=== PATIENT | female | born 1990 | race Hispanic/Latino ===

== ENCOUNTER 2021-11-11 16:46 | Emergency (ER) | payer OTHER ==
--- OUTSIDE RECORDS SUMMARY | 2021-11-11 16:50 | XMS REPORT | Continuity of Care Document ---
:1990 Author Organization [facility] t Address [address] [place] [address] Care Team Providers Name Role Phone No MD, Pcp Primary Care Physician Unavailable JOHANNY CHRISTINE Attending Clinician Unavailable Johanny Christine DO Attending Clinician Samira Barrow RN Attending Clinician Unavailable Doctor Unassigned, [place] Attending Clinician Unavailable Stacia Rogel Attending Clinician STACIA PRINCE Attending Clinician Unavailable Patrick Angel MD Attending Clinician MINGO READ Attending Clinician Unavailable Lab, Adc Fam Pob I Attending Clinician Unavailable Lis Obando Attending Clinician LIS HOGAN Attending Clinician Unavailable STACIA PRINCE Admitting Clinician Unavailable Payers Payer Name Policy Type Policy Number Effective Date Expiration Date S ource AETNA CHOICE POS II [id number] 2020 00:00:00 [employer] COMMERCIAL [id number] 2021 OUT OF NETWORK 00:00:00 Problems Condition Condition Condition Status Onset Resolution Last Treating Co mments Source Name Details Category Date Date Treatment Clinician Date No known No known Disease Unive rs active active ity of problems problems [facility] Allergies, Adverse Reactions, Alerts Allergy Allergy Status Severity Reaction(s) Onset Inactive Treating Comm ents Source Name Type Date Date Clinician Ibuprofe Propensi Active Nausea Univer s n ty to and/or 605 ity of adverse Vomiting 00:00: [place] reaction Medical s Branch IBUPROFE DRUG Active N/V Univers N INGREDI 6-05 ity of 00:00: [place] [facility] Diphenhy Propensi Active Hives Univer s dramine ty to 7-18 ity of Hcl adverse 00:00: [place] reaction Medical s Branch Ibuprin Propensi Active Nausea Univers ty to and/or 718 ity of adverse Vomiting 00:00: [place] reaction Medical s Branch DIPHENHY DRUG Active Hives Univers DRAMINE INGREDI 718 ity of HCL 00:00: [place] [facility] IBUPRIN DRUG Active N/V Univers 7-18 ity of 00:00: [place] [facility] [place] Social History Social Habit Start Date Stop Date Quantity Comments Source Exposure to 2021-08-22 2021-09-01 Not sure [facility] SARS-CoV-2 (event) 00:00:00 00:24:00 [facility] Branch Sex Assigned At [birth year] [facility] 00:00:00 00:00:00 Smoking Status Start Date Stop Date Source Unknown if ever smoked [facility] y [facility] Medications Ordered Filled Start Stop Current Ordering Indication Dosage Frequency Signature Comments Components Source Medication Medication Date Date Medication? Clinician (SIG) Name Name codeine-gua 2021- No 10mL 10 mL, Uni vers ifenesin 09-01 Oral, ity of (ROBITUSSIN 06:45: 05:45 [place] 10-100 00 :00 dose, On Medic al mg/5 mL Fri Branch oral 09/01/21 at solution 10 0145, ELENA mL acetaminoph 2021- Yes 1000mg 1,000 mg, Univers en 09-01 Oral, ity of (TYLENOL) 06:45: 18:44 ONCE, 1 [place] tablet 00 :00 dose, On Medical 1,000 mg Fri Branch 09/01/21 at 0145, ELENA albuterol Yes [id number] 2{puff} Inhale 2 Univers 90 6-24 Puffs ity of mcg/actuati 00:00: every 4 [place] on inhaler 00 (four) Medical hours as Branch needed for Wheezing or Shortness of Breath. albuterol Yes [id number] 2{puff} Inhale 2 Univers 90 6-24 Puffs ity of mcg/actuati 00:00: every 4 [place] as on inhaler 00 (four) Medical hours as Branch needed for Wheezing or Shortness of Breath. albuterol Yes [id number] 2{puff} Inhale 2 Univers 90 6-24 Puffs ity of mcg/actuati 00:00: every 4 [place] on inhaler 00 (four) Medical hours as Branch needed for Wheezing or Shortness of Breath. proMETHazin No 12.5mg 12.5 mg, Univers e 07-21 IV ity of (PHENERGAN) 04:00: 02:51 Piggyback, [place] 12.5 mg in 00 :00 ONCE, 1 Medica l NaCl 0.9% dose, On Branch (NS) 50 mL [place] IV 07/20/21 at piggyback 2300, ELENA azithromyci 2021- No 500mg 500 mg, IV Univers n 07-21 Piggyback, ity of (ZITHROMAX) 01:45: 02:27 [place]CE[place] 500 mg in 00 :00 dose, On Medica l NaCl 0.9% [place] (NS) 250 mL 07/20/21 at VIAL-MATE 2044, IV Administer piggyback over 60 Minutes, 250 mL
R jocelyne for Anti-Infec tive: Documented Infection< br>Documen jhoan Infection Site: Abdominal< br>Duratio n of Therapy: 7 days FENTanyl PF No 50ug 50 mcg, Un bridger (SUBLIMAZE 07-21 Slow IV ity o f (PF)) 01:45: 00:52 Push, [place] injection 00 :00 ONCE, 1 Medical 50 mcg dose, On Branch [place] 07/20/21 at 2044, Routine metoclopram No 10mg 10 mg, Uni vers shavonne HCl 5-13 05-13 Slow IV ity of (REGLAN) 01:45: 00:53 Push, [place] injection 00 :00 ONCE, 1 Medical 10 mg dose, On Branch [place] 07/20/21 at 204, ELENA iopamidol 2021- No [id number] 100mL 100 mL, Univers (ISOVUE 07-21 Intravenou ity o f 370-500 mL) 00:30: 23:10 s, ONCE, 1 [place] injection 00 :00 dose, On Medica l 100 mL [place] Branch 07/20/21 at 1930, Routine dicyclomine 2021- No 20mg 20 mg, Uni vers (BENTYL) 07-21 Intramuscu ity of injection 00:28: 00:28 lar, ONCE, [place] 20 mg 00 :00 1 dose, On Medical [place] 07/20/21 at 1930, Routine NaCl 0.9% 2021- No 1000mL at 999 Uni vers (NS) bolus 07-21 mL/hr, ity of infusion 00:15: 02:09 1,000 mL, [place] as 1,000 mL 00 :00 IV Medical Infusion, Branch ONCE, 1 dose, On [place] 07/20/21 at 1915, ELENA magnesium 2021- No 2g 2 g, IV Univ ers sulfate in 07-21 Piggyback, it y of water 2 00:15: 12:14 Administer [place] as gram/50 mL 00 :00 over 60 Medica l (4 %) Minutes, Branch infusion 2 ONCE, 1 g dose, On [place] 07/20/21 at 1915, Routine NaCl 0.9% 2021- No 1000mL at 999 Uni vers (NS) bolus 07-20 mL/hr, ity of infusion 23:15: 11:14 1,000 mL, [place] 1,000 mL 00 :00 IV Medical Infusion, Branch ONCE, 1 dose, On [place] 07/20/21 at 1815, ELENA ondansetron 2021- No 4mg 4 mg, Slow Univers (ZOFRAN 07-20 IV Push, ity of (PF)) 23:15: 22:32 ONCE, 1 [place] injection 4 00 :00 dose, On Medi vidal mg [place] 07/20/21 at 1815, ELENA pantoprazol 2021- No 40mg 40 mg, Uni vers e 07-20-12 Slow IV ity of (PROTONIX) 23:15: 22:35 Push, [place] injection 00 :00 ONCE, 1 Medical 40 mg dose, On Branch [place] 07/20/21 at 1815 azithromyci 0 Yes [id number] 250mg Take 1 Univers n 250 mg 5-12 tablet by ity of tablet 00:00: mouth [place] 00 daily. Medical Branch proMETHazin Yes [id number] 25mg Take 1 Univers e 25 mg 5-12 tablet by ity of tablet 00:00: mouth [place] 00 every 6 Medical (six) Branch hours as needed for N/V unresponsi ve to Ondansetro n. azithromyci Yes [id number] 250mg Take 1 Univers n 250 mg 5-12 tablet by ity of tablet 00:00: mouth [place] 00 daily. Medical Branch proMETHazin Yes [id number] 25mg Take 1 Univers e 25 mg 5-12 tablet by ity of tablet 00:00: mouth [place] 00 every 6 Medical (six) Branch hours as needed for N/V unresponsi ve to Ondansetro n. azithromyci Yes [id number] 250mg Take 1 Univers n 250 mg 5-12 tablet by ity of tablet 00:00: mouth [place] 00 daily. Medical Branch proMETHazin Yes [id number] 25mg Take 1 Univers e 25 mg 5-12 tablet by ity of tablet 00:00: mouth [place] 00 every 6 Medical (six) Branch hours as needed for N/V unresponsi ve to Ondansetro n. azithromyci Yes [id number] 250mg Take 1 Univers n 250 mg 5-12 tablet by ity of tablet 00:00: mouth [place] 00 daily. Medical Branch proMETHazin Yes [id number] 25mg Take 1 Univers e 25 mg 5-12 tablet by ity of tablet 00:00: mouth [place] 00 every 6 Medical (six) Branch hours as needed for N/V unresponsi ve to Ondansetro n. azithromyci Yes [id number] 250mg Take 1 Univers n 250 mg 5-12 tablet by ity of tablet 00:00: mouth 00 daily. Medical Branch proMETHazin Yes [id number] 25mg Take 1 Univers e 25 mg 5-12 tablet by ity of tablet 00:00: mouth [place] 00 every 6 Medical (six) Branch hours as needed for N/V unresponsi ve to Ondansetro n. dicyclomine Yes 20mg 20 mg, Univ ers (BENTYL) 08-14 Intramuscu ity o f injection 01:00: lar, QID, [place] as 20 mg 00 First dose Medical on Sat Branch 08/14/19 at 1999, Until Discontinu ed, Routine proCHLORper 2019- No 10mg 10 mg, IV Univers azine 08-14 Piggyback, ity of (COMPAZINE) 00:30: 00:30 [place]CE[place] 1 [place] 10 mg in 00 :00 dose, Fri Medica l NaCl 0.9% 08/14/19 at [facility] h (NS) 193, 50 piggyback mL metoclopram 2019- No 10mg 10 mg, Uni vers shavonne HCl 08-14 Slow IV ity of (REGLAN) 00:30: 23:30 Push, [place] injection 00 :00 ONCE, 1 Medical 10 mg dose, Fri [place] 08/14/19 at 1930, ELENA acetaminoph 2019- No 1000mg 1,000 mg, Univers en 08-14 Oral, ity of (TYLENOL) 00:30: 23:25 ONCE, 1 [place] tablet 00 :00 dose, Fri Medical 1,000 mg 08/14/19 at Branch 1929, Routine iohexol 2019-0 2020- No 120mL 120 mL, Unive rs (OMNIPAQUE 08-14 Intravenou it y of 350 00:18: 00:17 s, ONCE, 1 [place] BULK-150 00 :00 dose, Fri Medica l mL) 08/14/19 at [place] injection 1929, 120 mL Routine ondansetron 2020- No 4mg 4 mg, Slow Univers (ZOFRAN 08-14 IV Push, ity of (PF)) 00:15: 23:18 ONCE, 1 [place] injection 4 00 :00 dose, Fri Med ical mg 08/14/19 at Branch 1915, ELENA morpHINE 2019- No 4mg 4 mg, Slow Un bridger injection 4 08-14-05 IV Push, ity of mg 00:15: 23:18 ONCE, 1 [place] 00 :00 dose, Fri Medical 08/14/19 at Branch 1915, STAT NaCl 0.9% 2019- No 1000mL at 999 Uni vers (NS) bolus 08-13-06 mL/hr, ity of infusion 23:15: 01:00 1,000 mL, [place] as 1,000 mL 00 :00 IV Medical Infusion, Branch ONCE, 1 dose, 08/14/19 at 1815, ELENA dicyclomine 2019- No [id number] 20mg Take 1 Univers 20 mg 08-13-13 tablet by ity of tablet 00:00: 04:59 mouth 4 [place] 00 :00 (four) Medical times Branch daily for 7 days. ondansetron 2018-03 Yes [id number] 4mg Take 1 Univers (ZOFRAN 2-28 tablet by ity of ODT) 4 mg 00:00: mouth [place] disintegrat 00 every 8 Medic al ing tablet (eight) Branch hours as needed for Nausea and Vomiting (N/V). promethazin 2018-03 Yes [id number] 5mL Take 5 mL Univers e-codeine 2-28 by mouth 4 ity of 6.25-10 00:00: (four) [place] mg/5 mL 00 times Medical syrup daily as Branch needed for Cough. ondansetron 2018-03 Yes [id number] 4mg Take 1 Univers (ZOFRAN 2-28 tablet by ity of ODT) 4 mg 00:00: mouth [place] disintegrat 00 every 8 Medic al ing tablet (eight) Branch hours as needed for Nausea and Vomiting (N/V). cyclobenzap 2018-03 Yes [id number] 5mg Take 1 Univers rine 5 mg 2-28 tablet by ity o f tablet 00:00: mouth 3 [place] 00 (three) Medical times Branch daily. cyclobenzap 2018-03 Yes [id number] 5mg Take 1 Univers rine 5 mg 2-28 tablet by ity o f tablet 00:00: mouth 3 [place] 00 (three) Medical times Branch daily. promethazin 2018- Yes [id number] 5mL Take 5 mL Univers e-codeine 2-28 by mouth 4 ity of 6.25-10 00:00: (four) [place] mg/5 mL 00 times Medical syrup daily as Branch needed for Cough. ondansetron 2018-03 Yes [id number] 4mg Take 1 Univers (ZOFRAN 2-28 tablet by ity of ODT) 4 mg 00:00: mouth [place] disintegrat 00 every 8 Medic al ing tablet (eight) Branch hours as needed for Nausea and Vomiting (N/V). cyclobenzap 2018-03 Yes [id number] 5mg Take 1 Univers rine 5 mg 2-28 tablet by ity o f tablet 00:00: mouth 3 [place] 00 (three) Medical times Branch daily. promethazin 2018-03 Yes [id number] 5mL Take 5 mL Univers e-codeine 2-28 by mouth 4 ity of 6.25-10 00:00: (four) [place] mg/5 mL 00 times Medical syrup daily as Branch needed for Cough. ondansetron 2018-03 Yes [id number] 4mg Take 1 Univers (ZOFRAN 2-28 tablet by ity of ODT) 4 mg 00:00: mouth [place] disintegrat 00 every 8 Medic al ing tablet (eight) Branch hours as needed for Nausea and Vomiting (N/V). cyclobenzap 2018-03 Yes [id number] 5mg Take 1 Univers rine 5 mg 2-28 tablet by ity o f tablet 00:00: mouth 3 [place] 00 (three) Medical times Branch daily. promethazin 2018-03 Yes [id number] 5mL Take 5 mL Univers e-codeine 2-28 by mouth 4 ity of 6.25-10 00:00: (four) [place] mg/5 mL 00 times Medical syrup daily as Branch needed for Cough. ondansetron 2018- Yes [id number] 4mg Take 1 Univers (ZOFRAN 2-28 tablet by ity of ODT) 4 mg 00:00: mouth [place] disintegrat 00 every 8 Medic al ing tablet (eight) Branch hours as needed for Nausea and Vomiting (N/V). cyclobenzap 2018-03 Yes [id number] 5mg Take 1 Univers rine 5 mg 2-28 tablet by ity o f tablet 00:00: mouth 3 [place] 00 (three) Medical times Branch daily. promethazin 2018-03 Yes [id number] 5mL Take 5 mL Univers e-codeine 2-28 by mouth 4 ity of 6.25-10 00:00: (four) [place] mg/5 mL 00 times Medical syrup daily as Branch needed for Cough. ondansetron 2018-03 Yes [id number] 4mg Take 1 Univers (ZOFRAN 2-28 tablet by ity of ODT) 4 mg 00:00: mouth [place] disintegrat 00 every 8 Medic al ing tablet (eight) Branch hours as needed for Nausea and Vomiting (N/V). cyclobenzap 2018-03 Yes [id number] 5mg Take 1 Univers rine 5 mg 2-28 tablet by ity o f tablet 00:00: mouth 3 [place] 00 (three) Medical times Branch daily. promethazin 2018-03 Yes [id number] 5mL Take 5 mL Univers e-codeine 2-28 by mouth 4 ity of 6.25-10 00:00: (four) [place] mg/5 mL 00 times Medical syrup daily as Branch needed for Cough. ondansetron 2018-03 Yes [id number] 4mg Take 1 Univers (ZOFRAN 2-28 tablet by ity of ODT) 4 mg 00:00: mouth [place] disintegrat 00 every 8 Medic al ing tablet (eight) Branch hours as needed for Nausea and Vomiting (N/V). cyclobenzap 2018-03 Yes [id number] 5mg Take 1 Univers rine 5 mg 2-28 tablet by ity o f tablet 00:00: mouth 3 [place] 00 (three) Medical times Branch daily. promethazin 2018-03 Yes [id number] 5mL Take 5 mL Univers e-codeine 2-28 by mouth 4 ity of 6.25-10 00:00: (four) [place] mg/5 mL 00 times Medical syrup daily as Branch needed for Cough. ondansetron 2018-03 Yes [id number] 4mg Take 1 Univers (ZOFRAN 2-28 tablet by ity of ODT) 4 mg 00:00: mouth [place] disintegrat 00 every 8 Medic al ing tablet (eight) Branch hours as needed for Nausea and Vomiting (N/V). cyclobenzap 2018-03 Yes [id number] 5mg Take 1 Univers rine 5 mg 2-28 tablet by ity o f tablet 00:00: mouth 3 [place] 00 (three) Medical times Branch daily. promethazin 2018-03 Yes [id number] 5mL Take 5 mL Univers e-codeine 2-28 by mouth 4 ity of 6.25-10 00:00: (four) [place] mg/5 mL 00 times Medical syrup daily as Branch needed for Cough. ondansetron 2018-03 Yes [id number] 4mg Take 1 Univers (ZOFRAN 2-28 tablet by ity of ODT) 4 mg 00:00: mouth [place] disintegrat 00 every 8 Medic al ing tablet (eight) Branch hours as needed for Nausea and Vomiting (N/V). cyclobenzap 2018-03 Yes [id number] 5mg Take 1 Univers rine 5 mg 2-28 tablet by ity o f tablet 00:00: mouth 3 [place] 00 (three) Medical times Branch daily. promethazin 2018-03 Yes [id number] 5mL Take 5 mL Univers e-codeine 2-28 by mouth 4 ity of 6.25-10 00:00: (four) [place] mg/5 mL 00 times Medical syrup daily as Branch needed for Cough. traMADOL 2015-0 Yes 50mg Take 1 Tab Uni vers (ULTRAM) 50 7-19 by mouth ity of mg tablet 00:00: every 6 [place] 00 (six) Medical hours as Branch needed for Pain (scale 4-6). traMADOL 2015-0 Yes 50mg Take 1 Tab Uni vers (ULTRAM) 50 7-19 by mouth ity of mg tablet 00:00: every 6 [place] 00 (six) Medical hours as Branch needed for Pain (scale 4-6). traMADOL 2015-0 Yes 50mg Take 1 Tab Uni vers (ULTRAM) 50 7-19 by mouth ity of mg tablet 00:00: every 6 [place] 00 (six) Medical hours as Branch needed for Pain (scale 4-6). traMADOL 2015-0 Yes 50mg Take 1 Tab Uni vers (ULTRAM) 50 7-19 by mouth ity of mg tablet 00:00: every 6 [place] 00 (six) Medical hours as Branch needed for Pain (scale 4-6). traMADOL 2015-0 Yes 50mg Take 1 Tab Uni vers (ULTRAM) 50 7-19 by mouth ity of mg tablet 00:00: every 6 [place] 00 (six) Medical hours as Branch needed for Pain (scale 4-6). traMADOL 2015-0 Yes 50mg Take 1 Tab Uni vers (ULTRAM) 50 7-19 by mouth ity of mg tablet 00:00: every 6 [place] 00 (six) Medical hours as Branch needed for Pain (scale 4-6). traMADOL 2015-0 Yes 50mg Take 1 Tab Uni vers (ULTRAM) 50 7-19 by mouth ity of mg tablet 00:00: every 6 [place] 00 (six) Medical hours as Branch needed for Pain (scale 4-6). traMADOL 2015-0 Yes 50mg Take 1 Tab Uni vers (ULTRAM) 50 7-19 by mouth ity of mg tablet 00:00: every 6 [place] 00 (six) Medical hours as Branch needed for Pain (scale 4-6). traMADOL 2015-0 Yes 50mg Take 1 Tab Uni vers (ULTRAM) 50 7-19 by mouth ity of mg tablet 00:00: every 6 [place] 00 (six) Medical hours as Branch needed for Pain (scale 4-6). ciprofloxac 2015-0 Yes 500mg Take 1 Tab Univers in HCl 7-18 by mouth 2 ity of (CIPRO) 500 00:00: (two) [place] mg tablet 00 times Medical daily. Branch ciprofloxac 2015-0 Yes 500mg Take 1 Tab Univers in HCl 7-18 by mouth 2 ity of (CIPRO) 500 00:00: (two) [place] mg tablet 00 times Medical daily. Branch ciprofloxac 2015-0 Yes 500mg Take 1 Tab Univers in HCl 7-18 by mouth 2 ity of (CIPRO) 500 00:00: (two) [place] mg tablet 00 times Medical daily. Branch ciprofloxac 2015-0 Yes 500mg Take 1 Tab Univers in HCl 7-18 by mouth 2 ity of (CIPRO) 500 00:00: (two) [place] mg tablet 00 times Medical daily. Branch ciprofloxac 2015-0 Yes 500mg Take 1 Tab Univers in HCl 7-18 by mouth 2 ity of (CIPRO) 500 00:00: (two) [place] mg tablet 00 times Medical daily. Branch ciprofloxac 2015-0 Yes 500mg Take 1 Tab Univers in HCl 7-18 by mouth 2 ity of (CIPRO) 500 00:00: (two) [place] mg tablet 00 times Medical daily. Branch ciprofloxac 2015-0 Yes 500mg Take 1 Tab Univers in HCl 7-18 by mouth 2 ity of (CIPRO) 500 00:00: (two) [place] mg tablet 00 times Medical daily. Branch ciprofloxac 2015-0 Yes 500mg Take 1 Tab Univers in HCl 7-18 by mouth 2 ity of (CIPRO) 500 00:00: (two) [place] mg tablet 00 times Medical daily. Branch ciprofloxac 2014-0 Yes 500mg Take 1 Tab Univers in HCl 7-18 by mouth 2 ity of (CIPRO) 500 00:00: (two) [place] mg tablet 00 times Medical daily. Branch Vital Signs Vital Name Observation Time Observation Value Comments Source Systolic blood 2021-09-01 05:24:00 130 mm[Hg] Univer [facility]ity of [facility] Diastolic blood 2021-09-01 05:24:00 69 mm[Hg] [facility] Heart rate 2021-09-01 05:24:00 124 /min [facility] Body temperature 2021-09-01 05:24:00 39.22 [facility] Respiratory rate 2021-09-01 05:24:00 18 /min [facility] Body height 2021-09-01 05:24:00 167.6 cm [facility] Body weight 2021-09-01 05:24:00 77.111 kg [facility] BMI 2021-09-01 05:24:00 27.44 kg/m2 [facility] Oxygen saturation in 2021-09-01 05:24:00 98 /min [facility] Arterial blood by [facility] Pulse oximetry Branch Systolic blood 2021-07-21 03:00:00 113 mm[Hg] Univer sity [facility] Diastolic blood 2021-07-21 03:00:00 66 mm[Hg] Unive rsity [facility] Heart rate 2021-07-21 03:00:00 105 /min [facility] Respiratory rate 2021-07-21 03:00:00 18 /min [facility] Oxygen saturation in 2021-07-21 03:00:00 99 /min [facility] Arterial blood by [facility] Pulse oximetry Branch Body temperature 2021-07-20 21:47:00 37.22 [facility] Body height 2021-07-20 21:47:00 167.6 cm Universi [facility] Body weight 2021-07-20 21:47:00 62.143 kg [facility] BMI 2021-07-20 21:47:00 22.11 kg/m2 [facility] Systolic blood 2019-08-15 01:05:11 104 mm[Hg] [facility] pressure [facility] Diastolic blood 2019-08-15 01:05:11 67 mm[Hg] [facility] [place] [facility] Heart rate 2019-08-15 01:05:11 77 /min [facility] Body temperature 2019-08-15 01:05:11 36.28 [facility] Respiratory rate 2019-08-15 01:05:11 16 /min [facility] Oxygen saturation in 2019-08-15 01:05:11 100 /min [facility] Arterial blood by [facility] Pulse oximetry Branch Body weight 2019-08-14 22:36:00 62.143 kg [facility] BMI 2019-08-14 22:36:00 22.11 kg/m2 [facility] Procedures Procedure Date / Time Performing Clinician Source Performed EMERGENCY SERVICES 2021-09-01 05:01:00 [facility] AGREEMENTS AND [place] [facility] AUTHORIZATIONS NOTICE OF PRIVACY 2021-09-01 04:50:35 Doctor Von, [facility] PRACTICES [facility] [place] CONSENT/REFUSAL FOR 2021-09-01 04:50:07 Doctor Von, [facility] DIAGNOSIS AND TREATMENT [place] [facility] [place] CT ABDOMEN PELVIS W 2021-07-20 23:22:26 Stacia Prince [facility] CONTRAST [facility] Branch LIPASE 2021-07-20 22:30:00 Stacia Prince [facility] MAGNESIUM 2021-07-20 22:30:00 Stacia Prince [facility] COMP. METABOLIC PANEL 2021-07-20 22:30:00 Stacia [facility] [place] [id number] Medical Branch CBC WITH DIFF 2021-07-20 22:30:00 Stacia Prince [facility] URINALYSIS 2021-07-20 22:30:00 Stacia Prince [facility] POCT TEST 2021-07-20 22:30:00 Stacia Prince [facility] CT ABDOMEN PELVIS W 2019-08-15 00:25:09 Stacia Prince [facility] XR CHEST 1 VW 2019-08-14 23:29:44 Stcaia Prince [facility] POCT TEST 2019-08-14 23:09:00 Stacia Prince [facility] LIPASE 2019-08-14 23:07:00 Stacia Prince [facility] TROPONIN I 2019-08-14 23:07:00 Stacia Prince [facility] COMP. METABOLIC PANEL 2019-08-14 23:07:00 [facility] [place] [id number] CBC WITH DIFFERENTIAL 2019-08-14 23:07:00 [facility] 2019-08-14 23:07:00 Stacia Prince [facility] NOTICE OF PRIVACY 2019-08-14 22:31:04 Doctor Unassigned, [facility] PRACTICES [place] [facility] [place] CONSENT/REFUSAL FOR 2019-08-14 22:15:31 Doctor Unassigned, [facility] DIAGNOSIS AND TREATMENT [place] [facility] [place] Encounters Start End Encounter Admission Attending Care Care Encounter Source Date/Time Date/Time Type Type Clinicians Facility Department ID 2021-02-28 Outpatient [facility] [id number] [place] 14:58:23 Health 2021-09-01 2021-09-01 Emergency X NANCI NMJAMIR ERT [id number] Univers 00:33:00 00:49:00 JOHANNY ity of [facility] 2021-09-01 2021-09-01 [facility] [id number] Univers 00:33:00 00:49:00 Johanny JEFFERY [id number] [id number] [id number] [place] [id number] 2021-09-01 2021-09-01 Letter ANGELES [place] [id number] Univers 00:00:00 00:00:00 (Out) Samira JOHN [id number] it y of HOSPITAL [id number] [place] as [phone] [facility] 019 [place] 2021-09-01 2021-09-01 Orders Doctor REYNOSO [id number] Univers 00:00:00 00:00:00 Only Unassigned, DORA [id number] ity of [place] HOSPITAL [id number] [place] as [id number] [facility] 009 [place] 2021-08-31 2021-08-31 Orders Doctor REYNOSO [id number] Univers 00:00:00 00:00:00 Only Unassigned, DORA [id number] ity of [place] HOSPITAL [id number] [place] as [id number] [address] 2021-07-20 2021-07-20 [facility] [id number] Univers 16:49:00 23:53:00 Stacia JEFFERY [id number] ity of [place] [id number] [facility] [id number] [address] 2021-07-20 2021-07-20 Emergency X [facility] ERT [id number] Univers 16:49:00 23:53:00 FOLUSHO ity of [facility] 2021-02-28 2021-02-28 Office TRAE Angel [facility] [id number] [facility] 14:30:00 15:54:48 Visit Patrick ELDRIDGE [id number] H yaniv SHIN [id number] [facility] [id number] 2020-07-25 2020-07-26 Emergency E MINGO READ [facility] [id number] [facility] 22:30:00 01:39:00 2020-04-01 2020-04-01 Outpatient R [facility] [id number] Univers 09:40:00 09:40:00 [id number] ity [facility] 2020-04-01 2020-04-01 Outpatient R [facility] [id number] Univers 09:40:00 09:40:00 ity [facility] 2019-10-27 2019-10-27 Laboratory Lab, Adc Fam Pob I [facility] 1.2. [id number] Univers 13:12:09 13:32:09 Only Lis [place] [facility] [id number] ity of [place] 4.2.7.2.686 Waqas as Mandeep [phone] [address] Office Building One 2019-10-27 2019-10-27 Outpatient R [facility] [id number] Univers 13:20:00 13:20:00 [id number] ity [facility] 2019-10-27 2019-10-27 [facility] [id number] Univers 13:20:00 13:20:00 LIS ity [facility] 2019-10-27 2019-10-27 [facility] [id number] Univers 11:40:00 11:40:00 LIS y [facility] 2019-10-27 2019-10-27 Letter Doctor ANGELES [id number] Univers 00:00:00 00:00:00 (Out) Unassigned, DORA 350.1.13.10 [facility] 4.2.7.2.686 Waqas as [phone] [address] 2019-08-14 2019-08-14 Emergency Shahla [facility] [id number] Univers 17:31:29 20:11:00 Stacia Jeffery 350.1.13.10 ity of [place] 4.2.7.2.686 [facility] [phone] [facility] [address] 2019-08-14 2019-08-14 Emergency X SHAHLA, [facility] ERT [id number] Univers 17:31:29 20:11:00 FOLUSHO ity of [facility] 2019-08-14 2019-08-14 Orders Doctor ANGELES [id number] Univers 00:00:00 00:00:00 Only Unassigned, DORA 350.1.13.10 ity of [place] [facility] 4.2.7.2.686 [facility] [phone] [facility] [address] Results Test Description Test Time Test Comments Results Result Comments Source CBC WITH DIFF 2021-07-20 23:35:34 Test Item Value Reference Range Interpretation Comme nts WBC (test code = 6690-2) See_Comment H [A utomated message] The system which ge nerated this result transmit jhoan reference range: 4.30 - 1 1.10 10*3/?L. The reference r agustin was not used to interpr et this result as normal/abnor mal. RBC (test code = 789-8) See_Comment [Au tomated message] The system which ge nerated this result transmit jhoan reference range: 3.93 - 5 .25 10*6/?L. The reference r agustin was not used to interpr et this result as normal/abnor mal. HGB (test code = 718-7) 13.1 g/dL 11.6-15.0 HCT (test code = 4544-3) 39.9 % 35.7-45.2 MCV (test code = 787-2) 88.9 fL 80.6-95.5 MCH (test code = 785-6) 29.2 pg 25.9-32.8 MCHC (test code = 786-4) 32.8 g/dL 31.6-35.1 RDW-SD (test code = 15735-5) 45.5 fL 39.0-49.9 RDW-CV (test code = 788-0) 14.0 % 12.0-15.5 PLT (test code = 777-3) See_Comment [Au tomated message] The system which ge nerated this result transmit jhoan reference range: 166 - 35 8 10*3/?L. The reference range was not used to interpret th is result as normal/abnormal . MPV (test code = 83750-8) 10.7 fL 9.5-12.9 NRBC/100 WBC (test code = See_Comment [ Automated message] The 1917161577) system which ge nerated this result transmit jhoan reference range: 0.0 - 10 .0 /100 WBCs. The reference r agustin was not used to interpr et this result as normal/abnor mal. NRBC x10^3 (test code = <0.01 See_Comment [Au tomated message] The 8386892891) system which ge nerated this result transmit jhoan reference range: 10*3/?L. The reference range was not u sed to interpret this result as normal/abnormal . SEG % (test code = 29958-5) 84 % 33-76 H BAND % (test code = 07794-3) 4 % 0-1 H LYMPH % (test code = 6 % 14-54 L 21988-2) MONO % (test code = 25897-0) 6 % 0-4 H ANC (test code = 753-4) 15.79 10*3/uL 1.88-7.09 H Lab Interpretation (test Abnormal code = 41542-5) [facility] 22:59:26 Test Item Value Reference Range Interpretation Comments MAGNESIUM (test code = 4485524728) 1.6 mg/dL 1.7-2.4 L Lab Interpretation (test code = Abnormal 61071-0) [facility]. METABOLIC PANEL ([id number])2021-07-20 22:59:05 Test Item Value Reference Range Interpretation Comments NA (test code = 137 mmol/L 135-145 7314627317) K (test code = 4.5 mmol/L 3.5-5.0 1157366212) CL (test code = 103 mmol/L 98-108 1000883330) CO2 TOTAL (test code = 21 mmol/L 23-31 L 2256630366) AGAP (test code = 2-16 1115258614) BUN (test code = 11 mg/dL 7-23 6156574140) GLUCOSE (test code = 104 mg/dL 70-110 5080102456) CREATININE (test code = 0.85 mg/dL 0.50-1.04 0566611635) TOTAL BILI (test code = 0.5 mg/dL 0.1-1.1 1621318770) CALCIUM (test code = 9.4 mg/dL 8.6-10.6 7727279863) T PROTEIN (test code = 8.4 g/dL 6.3-8.2 H 5626543937) ALBUMIN (test code = 4.7 g/dL 3.5-5.0 8653894045) ALK PHOS (test code = 76 U/L 34-122 9144531793) ALTv (test code = 13 U/L 5-35 2-6) AST(SGOT) (test code = 23 U/L 13-40 7724108191) eGFR (test code = mL/min/1.73m2 8451017213) HOLLI (test code = HOLLI) Association of Glomerular Filtration Rate (GFR) and Staging of Kidney Disease* + --+ --+ ------+| GFR (mL/min/1.73 m2) ?| With Kidney Damage ?| ?Without Kidney Damage+ --------+ --------+ +| ?>90 ?| ?Stage one ?| ? Normal ?+ ---+ ---+ -------+| ?60-89 ?| ?Stage two ?| ? Decreased GFR ? + --+ --+ ------+| ?30-59 ?| ?Stage three ?| ? Stage three ? + --+ --+ ------+| ?15-29 ?| ?Stage four ? | ? Stage four ?+ ---+ ---+ -------+| ?<15 (or dialysis) ? ?| ?Stage five ? | ? Stage five ?+ ---+ ---+ -------+ *Each stage assumes the associated GFR level has been in effect for at least three months. ?Stages 1 to 5, with or without kidney disease, indicate chronic kidney disease. Notes: Determination of stages one and two (with eGFR >59mL/min/1.73 m2) requires estimation of kidney damage for at least three months as defined by structural or functional abnormalities of the kidney, manifested by either:Pathological abnormalities or Markers of kidney damage (including abnormalities in the composition of the blood or urine or abnormalities in imaging tests). Lab Interpretation Abnormal (test code = 68428-3) [facility]2022-05-12 22:58:45 Test Item Value Reference Range Interpretation Comments LIPASE (test code = 0830037458) 52 U/L 0-220 Lab Interpretation (test code = Normal 26020-9) [facility]PO[facility] [id number] 22:30:00 Test Item Value Reference Range Interpretation Comments POCT PREG (test code = 1605) negative On board controls acceptable with present C Line (test code = 3574) POCT PREG LOT # (test code = 3575) [id number] POCT PREG TEST DATE (test 12-08-2022 code = 3576) Lab Interpretation (test code = Normal 11223-3) [facility] HospitalCT ABDOMEN PELVIS W [id number] 01:00:19 Prominent soft tissue enhancement and fat stranding in the pelvis isconcerning for PID. PreliminaryReport Dictated by Resident: Rayna Ye ?MD. Nic, have reviewed this study and agree with theabove report.EXAM: CT ABDOMEN AND PELVIS WITH CONTRAST HISTORY: Abdominal pain. Diverticulitis suspected. COMPARISON: None. DOSE: Total exam DLP 271 mGy-cm TECHNIQUE AND FINDINGS: Contiguous axial imaging from the level of the lungbases through the pubic symphysis was performed after the uncomplicatedadministration of intravenous Omnipaque contrast. Coronal and sagittalreconstructions were obtained. ?Auto mA and/or iterative reconstructionwere used to reduce radiation dose. FINDINGS: LOWER THORAX: The lungs bases are clear. No cardiomegaly. LIVER: No focal hepatic lesions. ?Normal contour. GALLBLADDER AND BILIARY TREE: No biliary ductal dilation. ?No gallbladderwall thickening. SPLEEN: No splenomegaly. PANCREAS: No ductal dilation or masses. ADRENAL GLANDS: No adrenal nodules. KIDNEYS: No hydronephrosis, stones, or masses. PERITONEUM AND RETROPERITONEUM: No free air or fluid. LYMPH NODES: No lymphadenopathy. GI TRACT: No dilation or wall thickening. Normal appendix (2:105). PELVIS/BLADDER: The urinary bladder is decompressed and the bates are notsignificantly thickened with regardto degree of distention. Prominent softtissue enhancement and fat stranding seen in the pelvis (2:110) isconcerning for PID. VESSELS: The left ovarian vein is prominent. BONES AND SOFT TISSUES: No suspicious lytic or sclerotic bony lesions. [facility], Radiant Results Inft User - 08/14/2019 8:01 PM CDTEXAM:CT ABDOMEN AND PELVIS WITH CONTRASTHISTORY: Abdominal pain. Diverticulitis suspected.COMPARISON: None.DOSE: Total exam DLP 271 mGy- cmTECHNIQUE AND FINDINGS: Contiguous axial imaging from the level of the lungbases through the pubic symphysis was performed after the uncomplicatedadministration of intravenous Omnipaque contrast. Coronal and sagittalreconstructions were obtained. Auto mA and/or iterative reconstructionwere used to reduce radiation dose.FINDINGS:LOWER THORAX: The lungs bases are clear. No cardiomegaly.LIVER: No focal hepatic lesions. Normal contour.GALLBLADDER AND BILIARY TREE: No biliary ductal dilation. No gallbladderwall thickening.SPLEEN: No splenomegaly.PANCREAS: No ductal dilation or masses.ADRENAL GLANDS: No adrenal nodules.KIDNEYS: No hydronephrosis, stones, or masses.PERITONEUM AND RETROPERITONEUM: No free air or fluid.LYMPH NODES: No lymphadenopathy.GI TRACT: No dilation or wall thickening. Normal appendix (2:105).PELVIS/BLADDER: The urinary bladder is decompressed and the bates are notsignificantly thickened with regard to degree of distention. Prominent softtissue enhancement and fat stranding seen in the pelvis (2:110) isconcerning for PID.VESSELS: The left ovarian vein is prominent.BONES AND SOFT TISSUES: No suspicious lytic or sclerotic bony lesions.IMPRESSIONProminent soft tissue enhancement and fat stranding in the pelvis isconcerning for PID.Preliminary ReportDictated by Resident: Rayna Avalos MD., have reviewed this study and agree with theabove report.[facility] HospitalJosé [id number] 00:09:00 Test Item Value Reference Range Interpretation Comments TROPONIN I (test <0.012 See_Comment [Automated code = 5030796393) message] The system which generated this result transmitted reference range : <=0.034 ng/mL. The reference range was not used to interpr et this result as normal/abnormal . HOLLI (test code = Equal or Less than HOLLI) 0.034 ng/ml---Normal ?Note: Cardiac troponin begins to rise 3-4 hours after the onset of ischemia. Repeat in 4-6 hours if the sample was drawn within 3-4 hours of the onset of the symptom and found normal. Between 0.035 and 0.120 ng/mL--- Borderline. Questionable myocardial injury or necrosis ? ?Note: Serial measurement may be necessary to confirm or exclude the diagnosis of myocardial injury or necrosis; Clinical correlation (symptoms, EKGs, imaging studies, and others) required; Repeat in 4-6 hours if clinically indicated. ? Equal or Higher than 0.121 ng/mL---Abnormal. Myocardial Injury or Necrosis Likely ? Biotin has been reported to cause a negative bias, interpret results relative to patient's use of biotin. ? Lab Interpretation Normal (test code = 98699-3) [facility] HospitalXR CHEST 1 [id number] 23:58:42 No acute cardiopulmonary abnormality. Preliminary Report Dictated by Resident: Rayna Soto MD., have reviewed this study and agree with theabove report.EXAM: XR CHEST 1 VW HISTORY: SOB COMPARISON: None Technique: ?AP view radiograph of the chest FINDINGS: The lungs are clear. No focal consolidation, pleural effusion orpneumothorax is seen. The cardiac silhouette is normalin size. No acute bony abnormality. [facility], Radiant Results Inft User - 08/14/2019 6:59 PM CDTEXAM: XRCHEST 1 VWHISTORY: SOB COMPARISON: NoneTechnique: AP view radiograph of the chestFINDINGS:The lungs are clear. No focal consolidation, pleural effusion orpneumothorax is seen. The cardiac silhouette isnormal in size.No acute bony abnormality.IMPRESSIONNo acute cardiopulmonary abnormality.Preliminary Report Dictated by Resident: Rayna Marin MD., have reviewed this study and agree with theabove report. [facility] HospitalCOM. METABOLIC PANEL ([id number])2019-08-14 23:58:00 Test Item Value Reference Range Interpretation Comments NA (test code = 140 mmol/L 135-145 2941468562) K (test code = 3.9 mmol/L 3.5-5 6125037241) CL (test code = 107 mmol/L 98-108 3694774847) CO2 TOTAL (test code = 26 mmol/L 23-31 6904673912) AGAP (test code = 2-16 9135891612) BUN (test code = 14 mg/dL 7-23 8361303353) GLUCOSE (test code = 95 mg/dL 70-110 5654430770) CREATININE (test code = 0.85 mg/dL 0.5-1.04 7502407672) TOTAL BILI (test code = 0.6 mg/dL 0.1-1.6 5536429278) CALCIUM (test code = 9.9 mg/dL 8.6-10.6 3999748399) T PROTEIN (test code = 8.5 g/dL 6.3-8.2 H 0490662801) ALBUMIN (test code = 4.6 g/dL 3.5-5 6298499951) ALK PHOS (test code = 52 U/L 34-122 7349042891) ALTv (test code = 8 U/L 5-35 1742-6) AST(SGOT) (test code = 37 U/L 13-40 1430150559) eGFR Calculation mL/min/1.73m2 (Non-) (test code = 3825363919) eGFR Calculation mL/min/1.73m2 () (test code = 9532652112) HOLLI (test code = HOLLI) Association of Glomerular Filtration Rate (GFR) and Staging of Kidney Disease* + --+ --+ ------+| GFR (mL/min/1.73 m2) ?| With Kidney Damage ?| ?Without Kidney Damage+ --------+ --------+ +| ?>90 ?| ?Stage one ?| ? Normal ?+ ---+ ---+ -------+| ?60-89 ?| ?Stage two ?| ? Decreased GFR ? + --+ --+ ------+| ?30-59 ?| ?Stage three ?| ? Stage three ? + --+ --+ ------+| ?15-29 ?| ?Stage four ? | ? Stage four ?+ ---+ ---+ -------+| ?<15 (or dialysis) ? ?| ?Stage five ? | ? Stage five ?+ ---+ ---+ -------+ *Each stage assumes the associated GFR level has been in effect for at least three months. ?Stages 1 to 5, with or without kidney disease, indicate chronic kidney disease. Notes: Determination of stages one and two (with eGFR >59mL/min/1.73 m2) requires estimation of kidney damage for at least three months as defined by structural or functional abnormalities of the kidney, manifested by either:Pathological abnormalities or Markers of kidney damage (including abnormalities in the composition of the blood or urine or abnormalities in imaging tests). Lab Interpretation Abnormal (test code = 51408-7) [facility] HospitalLIPASE2020-06-05 23:58:00 Test Item Value Reference Range Interpretation Comments LIPASE (test code = 1980961639) 56 U/L 0-220 Lab Interpretation (test code = Normal 82109-9) [facility] HospitalUrinalysis2020-06-05 23:46:00 Test Item Value Reference Range Interpretation Comments APPEARANCE (test code = Clear Clear 5042911584) COLOR (test code = Yellow Yellow 2930665324) PH (test code = 4.8-8.0 9615990523) SP GRAVITY (test code = 1.003-1.030 7065871714) GLU U QUAL (test code = Normal Normal 9842775632) BLOOD (test code = 3+ Negative A 6095934431) KETONES (test code = 20 mg/dL Negative A 6580072108) PROTEIN (test code = Negative Negative 2887-8) UROBILIN (test code = Normal Normal 3605839246) BILIRUBIN (test code = Negative Negative 9559385032) NITRITE (test code = Negative Negative 7595225020) LEUK RED (test code = Negative Negative 9024570462) RBC/HPF (test code = See_Comment H [Autom ated message] 5570044579) The system [employer] generated this result transmitted ref erence range: 0 - 3 HP F. The reference range was not used to int erpret this result as normal/abnormal . WBC/HPF (test code = See_Comment H [Autom ated message] 6881466506) The system [employer] generated this result transmitted ref erence range: 0 - 5 HP F. The reference range was not used to int erpret this result as normal/abnormal . BACTERIA (test code = Few Negative A 8282477974) MUCOUS (test code = Marked Negative LPF A 7269581163) SQ EPITH (test code = HPF 2729572837) Lab Interpretation (test Abnormal code = 18959-1) [facility] WITH [id number] 23:39:00 Test Item Value Reference Range Interpretation Comments WBC (test code = See_Comment [Automated message] 6690-2) The system [employer] generated this result transmitted ref erence range: 4.30 - 1 1.10 10*3/?L. The re ference range was not u sed to interpret this result as normal/abnor mal. RBC (test code = See_Comment [Automated message] 179-8) The system [employer] generated this result transmitted ref erence range: 3.93 - 5 .25 10*6/?L. The re ference range was not u sed to interpret this result as normal/abnor mal. HGB (test code = 12.5 g/dL 11.6-15 718-7) HCT (test code = 38.1 % 35.7-45.2 4544-3) MCV (test code = 90.3 fL 80.6-95.5 787-2) MCH (test code = 29.6 pg 25.9-32.8 785-6) MCHC (test code = 32.8 g/dL 31.6-35.1 786-4) RDW-SD (test code 43.0 fL 39-49.9 = 09776-5) RDW-CV (test code 13.1 % 12-15.5 = 788-0) PLT (test code = See_Comment [Automated message] 777-3) The system [employer] generated this result transmitted ref erence range: 166 - 35 8 10*3/?L. The re ference range was not u sed to interpret this result as normal/abnor mal. MPV (test code = 11.3 fL 9.5-12.9 39839-9) NRBC/100 WBC (test See_Comment [Automat ed message] code = 4874967878) The syste m which generated this result transmitted ref erence range: 0.0 - 10 .0 /100 WBCs. The refer ence range was not u sed to interpret this result as normal/abnor mal. NRBC x10^3 (test <0.01 See_Comment [Automated message] code = 1299808747) The syste m which generated this result transmitted ref erence range: 10*3/?L. The reference range was not used to interpr et this result as normal/abnormal . GRAN MAT (NEUT) % 54.8 % (test code = 770-8) IMM GRAN % (test 0.10 % code = 5281629429) LYMPH % (test code 37.3 % = 736-9) MONO % (test code 6.9 % = 5905-5) EOS % (test code = 0.6 % 713-8) BASO % (test code 0.3 % = 706-2) GRAN MAT 3.65 10*3/uL 1.88-7.09 x10^3(ANC) (test code = 4134491234) IMM GRAN x10^3 <0.03 0-0.06 (test code = 9999828901) LYMPH x10^3 (test 2.49 10*3/uL 1.32-3.29 code = 731-0) MONO x10^3 (test 0.46 10*3/uL 0.33-0.92 code = 742-7) EOS x10^3 (test 0.04 10*3/uL 0.03-0.39 code = 711-2) BASO x10^3 (test <0.03 0.01-0.07 code = 704-7) [facility] HospitalPO[facility] Test, [id number] 23:09:00 Test Item Value Reference Range Interpretation Comments POCT PREG (test code = 1605) negative On board controls acceptable with present C Line (test code = 3574) POCT PREG LOT # (test code = 3575) [id number] POCT PREG TEST DATE (test 10/08/2020 code = 3576) Lab Interpretation (test code = Normal 00904-9) [facility]"
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
[2021-11-11 20:34] VITALS: TEMP 97.3; O2SAT 100
[2021-11-11 20:37] VITALS: BP 109/65
== END 2021-11-11 17:59 | disposition home or self-care (01) ==
LOC: ER 16:46
DX: S30.0XXA Contusion of lower back and pelvis, initial encounter (principal); Z88.6 Allergy status to analgesic agent; Z88.8 Allergy status to other drugs, medicaments and biological substances
CPT/HCPCS: 72192; 99283